=== PATIENT | male | born 1975 | race Caucasian/White ===

== ENCOUNTER 2023-11-02 15:59 | Emergency (ER) | payer BC, SELFPAY ==
--- NOTE | ~2023-11-02 | XR_ITS ---
EXAMINATION: XR chest 2V DATE: 11/02/2023 16:28 INDICATION: Cough and shortness of breath TECHNIQUE: PA and lateral views of the chest are obtained. COMPARISON: None available FINDINGS: The lungs are free of acute opacities. There is a moderate-sized right pneumothorax. The ca rdiomediastinal silhouette is normal. There is mild thoracic spondylosis. IMPRESSION: 1. Moderate size right pneumothorax. [facility] is [facility]. These findings and recommendations were discussed with MARIETTA Biggs at 1618 hours on 11/02/2023. Reviewed, dictated and finalized at location [facility] IMPRESSION: 1. Moderate size right pneumothorax. It is advised that the patient proceed to the emergency department for further management. These findings and recommendat ions were discussed with MARIETTA Biggs at 1618 hours on 11/02/2023.
[2023-11-02 16:07] VITALS: BP 141/79; PULSE 72; RESP 22; TEMP 36.8; O2SAT 99
--- NOTE | 2023-11-02 16:28 | ED.URI ---
HPI - URI/Sore Throat General Chief Complaint: Upper Respiratory Infection Stated Complaint: Chest Congestion/Shortness of Breath/Chest Pain History of Present Illness HPI Narrative: Patient presents with a mole long history of cough productive at times patient states he feels short of breath at times. Patient denies any fever or body aches states he has taken multiple things [id number] for symptoms including NyQuil DayQuil and Mucinex. Related Data Home Medications Medication Instructions Recorded Confirmed sertraline 100 mg tablet 200 mg PO DAILY 11/02/23 11/02/23 Allergies Allergy/AdvReac Type Severity Reaction Status Date / Time No Known Allergies Allergy Verified 11/02/23 16:13 Review of Systems Review of Systems: CONSTITUTIONAL: Denies chills, or sweats. Reports fever and generalized body aches EYES: Denies visual changes, redness, or discharge. ENT: Denies otalgia. Reports nasal congestion runny nose and sore throat CARDIOVASCULAR: Denies chest pain, palpitations, or edema. RESPIRATORY: Denies dyspnea. Reports occasional cough GASTROINTESTINAL: Denies abdominal pain, nausea, vomiting, or diarrhea. GENITOURINARY: Denies dysuria or hematuria. SKIN: Denies rash or itching. MUSCULOSKELETAL: Denies back pain, joint pain, or myalgia. Reports generalized body aches NEUROLOGIC: Denies headache, numbness, or weakness. PSYCHIATRIC: Denies anxiety or depression. PMFSH Comments At time of signature, agree with nursing past medical, surgical, social and family history. There is no relevant family history pertinent to the presenting complaint Exam Narrative: The patient is a well-developed, well-nourished in no acute distress. SKIN: Skin is warm and dry without erythema, swelling or exudate. There is good turgor. No tenting. HEAD: Atraumatic. Normocephalic. No temporal or scalp tenderness. EYES: Moist and bright. Sclera and conjunctivae normal. No discharge. PERRLA. Extraocular motions intact. Gross visual acuity intact. EARS: Pinna is normal shape and contour. Clear external auditory canals. TM pearly hirsch with good cone of light, no erythema or suppuration. Bilateral cerumen noted no gross hearing deficit. NOSE: pink, moist mucosa with good air movement. Clear rhinorrhea without nasal flaring. Septum midline. Mouth: moist mucous membranes. THROAT; mild erythema noted to posterior oropharynx with moderate postnasal drainage. Without exudate or ulceration.. Uvula midline. Normal movement of soft palate. NECK: Supple and nontender with full range of motion without discomfort. No meningeal signs. LUNGS: diminished right base CHEST: The chest wall is without retractions or use of accessory muscles. HEART: Has a regular rate and rhythm without murmur, gallops, click or rub. ABDOMEN: Soft, nontender with positive active bowel sounds. No rebound tenderness. EXTREMITIES: Without cyanosis, clubbing or edema. Equal 2+ distal pulses and 2 second capillary refill noted. NEUROLOGIC: alert, active, . The patient moves all extremities with normal muscle strength. Normal muscle tone is noted. Normal coordination is noted. NO focal neurological findings noted. Course Course Level of Care: Express Care Visit Vital Signs Vital signs: Vital Signs Temperature 36.8 C 11/02/23 16:07 Pulse Rate 72 11/02/23 16:07 Respiratory Rate 22 H 11/02/23 16:07 Blood Pressure 141/79 H 11/02/23 16:07 Pulse Oximetry 99 11/02/23 16:07 Oxygen Delivery Room Air 11/02/23 16:07 Temperature 36.8 C 11/02/23 16:07 Pulse Rate 72 11/02/23 16:07 Respiratory Rate 22 H 11/02/23 16:07 Blood Pressure 141/79 H 11/02/23 16:07 Pulse Oximetry 99 11/02/23 16:07 Oxygen Delivery Room Air 11/02/23 16:07 Transfer Transfered to: [facility] Transportation: ALS Transfer rationale: Higher level care for evaluation treatment of right-sided pneumothorax Accepting physician: guanakito Transfer comm
== END 2023-11-02 17:29 | disposition short-term general hospital (02) ==
PROVIDERS: Emergency Provider Nurse Practitioner Family; PCP Family Medicine
DX: J93.9 Pneumothorax, unspecified (principal)
CPT/HCPCS: 71046; 99203; G0463

== ENCOUNTER 2025-02-16 11:18 | Emergency (ER) | payer BC, SELFPAY ==
--- NOTE | ~2025-02-16 | XR_ITS ---
Clinical Indication: Shortness of breath PA and lateral views of the chest: Comparison: 11/02/2023 Findings: The lungs are clear, without evidence of focal consolidation or pleural effusion. Cardiome diastinal silhouette is within normal limits. Bones and soft tissues are unremarkable. Impression: Normal chest. Reviewed, dictated and finalized at location . Impression: Normal chest.
[2025-02-16 11:21] VITALS: BP 153/98; PULSE 83; RESP 20; TEMP 36.7; O2SAT 100
--- NOTE | 2025-02-16 11:30 | ED_ITS ---
HPI - SOB/Dyspnea General Chief Complaint: Shortness of Breath/Dyspnea Stated Complaint: Shortness of Breath Time Seen by Provider: 02/16/25 11:31 Source: patient Mode of arrival: ambulatory Limitations: no limitations History of Present Illness HPI Narrative: 50 y/o male with hx spontaneous pneumothorax presented for c/o sob. Onset 3 days. worsening since onset. Symptoms unchanged with rest/exertion. Feels like he wakes in the night due to not being able to breathe. Says symptoms feel similar to the previous pneumothorax. denies palpitations but states chest feels weird. Denies cough, wheezing chest pain, n/v/d/f/c. Related Data Home Medications ?Medication ?Instructions ?Recorded ?Confirmed ?Last Taken ?Type sertraline 100 mg tablet 200 mg PO DAILY 11/02/23 11/02/23 Unknown History aripiprazole 10 mg tablet mg 02/16/25 Unknown History atorvastatin 20 mg tablet mg 02/16/25 Unknown History bupropion HCl 150 mg 24 hr tablet, mg PO 02/16/25 Unknown History extended release hydrochlorothiazide 12.5 mg capsule mg 02/16/25 Unknown History levothyroxine 50 mcg tablet mcg 02/16/25 Unknown History losartan 100 mg tablet mg 02/16/25 Unknown History quetiapine 100 mg tablet mg 02/16/25 Unknown History Allergies Allergy/AdvReac Type Severity Reaction Status Date / Time No Known Allergies Allergy Verified 02/16/25 11:27 Review of Systems Review of Systems: per HPI All systems reviewed & are unremarkable except as noted in HPI and below PMFSH Comments At time of signature, I have reviewed and agree with nursing past medical, surgical, social and family history unless otherwise noted. Please see nursing chart for further information. There is no relevant family history pertinent to the presenting complaint Exam Narrative: GENERAL: Well-appearing, in no acute distress. EYES: EOMI. No redness or drainage. Conjunctivae normal. ENT: Mucous membranes pink and moist. No rhinorrhea. NECK: Normal AROM. Supple. CHEST: No respiratory distress; speaks full sentences. lungs clear to all [place]. HEART: Regular rate and rhythm. No murmur appreciated. SKIN: Warm, dry, no rash. Capillary refill normal. Normal skin turgor. NEURO: Alert and oriented x3. Gait steady. PSYCH: Normal affect. Course Course Emergency Course: Patient is aware of diagnosis, understands and agrees to treatment plan. Anticipatory guidance given. Patient agrees to follow-up as directed and is aware of reasons to seek care at the emergency department. Portions of this record may have been created with voice recognition software Level of Care: Express Care Visit Vital Signs Vital signs: Vital Signs Temperature 98.1 F 02/16/25 11:21 Pulse Rate 83 02/16/25 11:21 Respiratory Rate 20 02/16/25 11:21 Blood Pressure 153/98 H 02/16/25 11:21 Pulse Oximetry 100 02/16/25 11:21 Oxygen Delivery Room Air 02/16/25 11:21 Temperature 98.1 F 02/16/25 11:21 Pulse Rate 83 02/16/25 11:21 Respiratory Rate 20 02/16/25 11:21 Blood Pressure 153/98 H 02/16/25 11:21 Pulse Oximetry 100 02/16/25 11:21 Oxygen Delivery Room Air 02/16/25 11:21 MDM - SOB/Dyspnea MDM Narrative Medical decision making narrative: Discussed physical exam findings, Reviewed CXR and EKG unremarkable however given his history of spontaneous pneumo he is advised ER transfer. Shared decision making. Pt is agreeable. Differential Diagnosis Differential diagnosis: Likely other (Angioedema, perforation, asthma, pneumonia, PE, tension pneumothorax, cardiac tamponade [place], pericarditis, pleural effusion, CHF, bronchitis, cardiac arrhythmia) Imaging Data Radiologist's impression: Patient: Jun Alexis : 1975 MR#: [id number] Age: 50 Acct:[id number] Loc: [facility] ADM Date: 02/16/25Attending Dr: Ordering Physician: Briana Lester APRN Date of Service: 02/16/25 Procedure(s): XR chest 2V Accession Number(s): [id number] cc: Julian, Francisco Javier Ji MD; Briana Lester APRN~ Clinical Indication: Shortness of breath PA and lateral views of the chest: Comparison: 11/02/2023 Findings: The lungs are clear, without evidence of focal consolidation or pleural effusion. Cardiomediastinal silhouette is within normal limits. Bones and soft tissues are unremarkable. Impression: Normal chest. ECG Data EKG #1: Attestation: I personally reviewed and interpreted this ECG as follows: (NSR sinus arrhythmia rate 72, OR 198 QRS 107 QT/QTc 403/427) ECG completion date: 02/16/25 ECG completion time: 11:47 Prior ECG tracings: not available for review EKG Interpretation: normal rate and sinus rhythm Discharge Plan Discharge Clinical Impression: Shortness of breath Patient Disposition: Acute Care Hospital Condition: Stable Patient Language: Citizen Of [place] Prescriptions: No Action sertraline 100 mg tablet 200 mg PO DAILY atorvastatin 20 mg tablet quetiapine 100 mg tablet levothyroxine 50 mcg tablet hydrochlorothiazide 12.5 mg capsule losartan 100 mg tablet aripiprazole 10 mg tablet bupropion HCl 150 mg tablet extended release 24 hr PO Follow-up/Referrals: Julian,Francisco Javier Valentino MD [Primary Care Provider] - Time of Disposition: 12:07
--- NOTE | 2025-02-16 11:39 | ECG_ITS ---
Test Date: 2025-02-16 11:47:06 Measurements Intervals [place] Rate: 72 P: 50 UT: 198 QRS: 76 QRSD: 107 T: 47 QT: 403 QTc: 442 Interpretive Statements SINUS RHYTHM WITH SINUS ARRHYTHMIA INCOMPLETE RIGHT BUNDLE BRANCH BLOCK MINIMAL Q WAVES- INFERIOR LEADS BASELINE ARTIFACT- II, III BORDERLINE ECG No previous ECG available for comparison Electronically Signed On 02-16-2025 12:05:26 CDT by Ronaldo Glass D.O.
--- OUTSIDE RECORDS SUMMARY | 2025-02-16 13:16 | XMS_ITS | Clinical Summary ---
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 [employer] us Francisco Javier Jordan MD LAB BLOOD ORDERABLES Final Result KRISTINA PRASAD [id number] [address] Department [place] [address] * Urinalysis reflex to microscopic and culture Urine (12/11/2024 1:13 PM [employer]) Color, ur Yellow Yellow Clarity, ur Clear Clear [facility] ([place]) Specific gravity, ur 1.019 1.003 - 1.030 [facility] ([place]) pH, urine 5.5 [facility] ([place]) Comment: Interpretive Data U rine pH is affected by diet, medications, systemic acid-base disturbances, and renal tubular function. pH may affect urinary stone formation. For example, urine pH below 6.0 may help reduce the tendency for calcium phosphate stones and pH greater than 6.0 may reduce the tendency for uric acid stone formation. Source: [facility] Current Interpretive Data was last revised on 2017 Protein, ur ql Trace Negative [facility] ([place]) Glucose, ur ql Negative Negative [facility] ([place]) Ketones, ur Negative Negative [facility] ([place]) Bilirubin, ur Negative Negative [facility] ([place]) Blood, ur Negative Negative [facility] ([place]) Urobilinogen, ur <2.0 <2.0 mg/dL [facility] ([place]) Nitrite, ur Negative Negative [facility] ([place]) Leukocyte esterase, ur Negative Negative [facility] ([place]) UA reflex comment Reflex conditions for microscopic UA and culture not met. [facility] ([place]) Urine 12/11/2024 1:13 PM [employer] 12/11/2024 1:17 PM [employer] us Anton Levy MD LAB MICROBIOLOGY - GENERAL OR DERABLES Final Result [facility] ([place]) [facility] Department [place] [address] * Drugs of Abuse Screen, Urine without Confirmation (12/11/2024 1:13 PM [employer]) Amphetamine, ur Not Detected CutOff 500ng/mL Comment: Interpretive Data - Amphetamines: Samples containing greater than 500 ng/mL d-methamphetamine or other cross-reacting amphetamine compounds are reported as positive. Amphetamine immunoassays are subject to significant false positive rates due to cross-reactivity of non-amphetamine drugs. Confirmatory testing required for definitive results. Current Interpretive Data was last reviewed 2023. Barbiturates, ur Not Detected CutOff 200ng/mL [facility] ([place]) Comment: Interpretive Data - Barbiturates: Samples containing greater than 200 ng/mL secobarbital or other cross-reacting barbiturate compounds are reported as positive. False positive and false negative results are possible. Confirmatory testing required for definitive results. Current Interpretive Data was last reviewed 2023. Benzodiazepines, ur Not Detected CutOff 100ng/mL [facility] ([place]) Comment: Interpretive Data - Benzodiazepines: Samples containing greater than 100 ng/mL nordiazepam or other cross-reacting compounds are reported as positive. False positive and false negative results are possible. Confirmatory testing required for definitive results. Current Interpretive Data was last reviewed 2023. Cannabinoids, ur Not Detected CutOff 50 ng/mL [facility] ([place]) Comment: Interpretive Data - Cannabinoids: Samples containing greater than 50 ng/mL delta-9 THC -COOH or other cross- reacting compounds are reported as positive. False positive and false negative results are possible. Confirmatory testing required for definitive results. Current Interpretive Data was last reviewed 2023. Cocaine, ur Not Detected CutOff 150ng/mL [facility] ([place]) Comment: Interpretive Data - Cocaine: Samples containing greater than 150 ng/mL benzoylecgonine or other cross- reacting compounds are reported as positive. False positive and false negative results are possible. Confirmatory testing required for definitive results. Current Interpretive Data was last reviewed 2023. Fentanyl, Ur Not Detected CutOff 5 ng/mL [facility] ([place]) Comment: Interpretive Data - Fentanyl: Samples containing greater than 5 ng/mL norfentanyl, fentanyl, or other cross-reacting fentanyl compounds are reported as positive. False positive and false negative results are possible. Confirmatory testing required for definitive results. Current Interpretive Data was last reviewed 2023. Methadone, ur Not Detected CutOff 300ng/mL [facility] ([place]) Comment: Interpretive Data - Methadone: Samples containing greater than 300 ng/mL d,l-methadone or other cross-reacting compounds are reported as positive. False positive and false negative results are possible. Confirmatory testing required for definitive results. Current Interpretive Data was last reviewed 2023. Opiates, ur Not Detected CutOff 300ng/mL [facility] ([place]) Comment: Interpretive Data - Opiates: Samples containing greater than 300 ng/mL morphine or other cross-reacting compounds are reported as positive. False positive and false negative results are possible. Confirmatory testing required for definitive results. Current Interpretive Data was last reviewed 2023. Oxycodone, ur Not Detected CutOff 100ng/mL KRISTINA GON[facility]ALE[facility] ([place]) Comment: Interpretive Data - Oxycodone: Samples containing greater than 100 ng/mL oxycodone or other cross-reacting compounds are reported as positive. False positive and false negative results are possible. Confirmatory testing required for definitive results. Current Interpretive Data was last reviewed 2023. Phencyclidine, ur Not Detected CutOff 25 ng/mL KRISTINA GON[facility]ALE[facility] ([place]) Comment: Interpretive Data - Phencyclidine: Samples containing greater than 25 ng/mL phencyclidine or other cross-reacting compounds are reported as positive. False positive and false negative results are possible. Confirmatory testing required for definitive results. Current Interpretive Data was last reviewed 2023. Urine Creatinine 206 mg/dL EYAL GON[facility] ([place]) Comment: Interpretive Data Urine Creatinine: < 10 mg/dL is extremely dilute = or > 10 but < 20 mg/dL is dilute = or > 20 mg/dL is normal Current Interpretive Data was last revised on 2018. Urine 12/11/2024 1:13 PM [employer] 12/11/2024 1:17 PM [employer] Narrative KRISTINA GON[facility]ALE[facility] ([place]) - 12/11/2024 1:53 PM [employer] Drug of Abuse screening is performed by immunoassay for medical purposes only. This is not to be used for Pain Management purposes. us Anton Levy MD LAB URINE ORDERABLES Final Re sult KRISTINA GONZALEZ ([place]) 1 [facility] Department of Laboratories [place], [place] [id number] * (ABNORMAL) Ethanol (12/11/2024 12:13 PM [employer]) Ethanol 98(H) <=10 mg/dL Comment: Interpretive Data Legal limit of intoxication > or = 80 mg/dL Levels > or = 400 mg/dL are potentially TOXIC. Current interpretive data was last revised on 2018. Blood 12/11/2024 12:1 3 PM [employer] 12/11/2024 12:15 PM [employer] us Zhang Edwards MD LAB BLOOD ORDERABLES Final R esult KRISTINA GONZALEZ ([place]) 1 [facility] Department [place] [address] * COVID-19 Coronavirus RNA Nasopharyngeal (12/11/2024 4:22 AM [employer]) COVID-19 RNA Negative Negative Nasopharyngeal 12/11/2024 4: 22 AM [employer] 12/11/2024 4:26 AM [employer] Narrative KRISTINA GONZALEZ ([place]) - 12/11/2024 5:03 AM [employer] Is the patient experiencing any symptoms consistent with COVID (eg. Fever, cough, shortness of breath)?->No What is the reason for testing?->Screening prior to Behavioral health admission Interpretive data: Testing performed by [facility]. This test is performed using the [employer] Xpert Xpress CoV-2 plus assay. This is a real-time RT-PCR test intended for the qualitative detection of nucleic acid from the SARS-CoV-2. This assay has been cleared by the [place] Food and Drug administration. The performance characteristics have been verified by [facility]. Results must be considered in the clinical context, and a negative result does not rule out infection. Interpretive data last revised 2024. Interpretive data: Testing performed by [facility]. This test is performed using the [employer] Xpert Xpress CoV-2 plus assay. This is a real-time RT-PCR test intended for the qualitative detection of nucleic acid from the SARS-CoV-2. This assay has been cleared by the [place] Food and Drug administration. The performance characteristics have been verified by [facility]. Results must be considered in the clinical context, and a negative result does not rule out infection. Interpretive data last revised 2024. us Anton Levy MD LAB MICROBIOLOGY - GENERAL OR DERABLES Final Result KRISTINA GONZALEZ ([place]) 1 [facility] Department [place] [address] * eGFR (12/11/2024 4:22 AM [employer]) eGFR >90 >=60 mL/min/1. 73 m2 Comment: Interpretive Data Reference Interval Normal >/= 90 mL/min/1.73m2 Mildly decreased* 60 - 89 mL/min/1.73m2 Mildly to moderately decreased 45 - 59 mL/min/1.73m2 Moderately to severely decreased 30 - 44 mL/min/1.73m2 Severely decreased 15 - 29 mL/min/1.73m2 Kidney Failure < 15 mL/min/1.73m2 *Relative to young adult level Estimated glomerular filtration rate is determined by the 2020 CKD-EPI equation recommended by the National Kidney Foundation (A Unifying Approach to GFR Estimation: Recommendations of the NKF-ASK Task Force on Reassessing the Inclusion of Race in Diagnosing Kidney Disease, JASN 2020). The CKD-EPI equation should not be used for patients with unstable renal function and has not been validated in children and those over 70. Current interpretive data was last reviewed 2021. Blood 12/11/2024 4:22 AM [employer] 12/11/2024 4:26 AM [employer] us Anton Levy MD LAB BLOOD ORDERABLES Final Re sult KRISTINA GONZALEZ ([place]) 1 [facility] Department [place] [address] * Differential, auto (12/11/2024 4:22 AM [employer]) Neutrophil abs 4.9 1.5 - 6.5 K/cumm Imm gran abs 0.1 0.0 - 0.1 K/cumm [facility] ([place]) Lymphocyte abs 2.3 0.8 - 3.3 K/cumm [facility] ([place]) Monocyte abs 0.4 0.2 - 0.8 K/cumm [facility] ([place]) Eosinophil abs 0.1 0.0 - 0.5 K/cumm [facility] ([place]) Basophil abs 0.0 0.0 - 0.1 K/cumm [facility] ([place]) Neutrophil pct 63.5 % [facility] ([place]) Comment: Interpretive Data Percent cell count reference ranges are not reported, since discordance with absolute values may lead to misinterpretation of CBC data. Current Interpretive Data was last revised on 2018. Imm gran pct 0.6 % [facility] ([place]) Comment: Interpretive Data Percent cell count reference ranges are not reported, since discordance with absolute values may lead to misinterpretation of CBC data. Current Interpretive Data was last revised on 2018. Lymphocyte pct 29.2 % [facility] ([place]) Comment: Interpretive Data Percent cell count reference ranges are not reported, since discordance with absolute values may lead to misinterpretation of CBC data. Current Interpretive Data was last revised on 2018. Monocyte pct 5.5 % [facility] ([place]) Comment: Interpretive Data Percent cell count reference ranges are not reported, since discordance with absolute values may lead to misinterpretation of CBC data. Current Interpretive Data was last revised on 2018. Eosinophil pct 0.8 % [facility] ([place]) Comment: Interpretive Data Percent cell count reference ranges are not reported, since discordance with absolute values may lead to misinterpretation of CBC data. Current Interpretive Data was last revised on 2018. Basophil pct 0.4 % [facility] ([place]) Comment: Interpretive Data Percent cell count reference ranges are not reported, since discordance with absolute values may lead to misinterpretation of CBC data. Current Interpretive Data was last revised on 2018. Blood 12/11/2024 4:22 AM [employer] 12/11/2024 4:26 AM [employer] us Anton Levy MD LAB BLOOD ORDERABLES Final Re sult KRISTINA GONZALEZ ([place]) 1 [facility] Department [place] [address] * (ABNORMAL) Thyroid Function [place] (12/11/2024 4:22 AM [employer]) TSH 6.07(H) 0.30 - 4.20 mcIUnit/mL Blood 12/11/2024 4:22 AM [employer] 12/11/2024 4:26 AM [employer] us Anton Levy MD LAB BLOOD ORDERABLES Final Re sult Performing Organization Address City/[facility]/ZIP Co de Phone Number [facility] ([place]) [facility] Department [place] [address] * (ABNORMAL) CBC with auto differential (12/11/2024 4:22 AM PRESS OPER[employer]) Pathologist [facility] WBC 7.8 3.8 - 9.9 K/cumm Hgb 14.2 13.0 - 17.5 g/dL [facility] ([place]) Hct 39.5 38.9 - 50.3 % [facility] ([place]) Plt 169 150 - 400 K/cumm [facility] ([place]) MPV 9.1 9.1 - 12.3 fL [facility] ([place]) RBC 4.35 4.30 - 5.80 M/cumm [facility] ([place]) MCV 90.8 81.3 - 96.4 fL [facility] ([place]) MCH 32.6 27.1 - 33.3 pg [facility] ([place]) MCHC 35.9(H) 32.3 - 35.7 g/dL [facility] ([place]) RDW CV 15.0(H) 11.1 - 14.9 % [facility] ([place]) RDW SD 49.6(H) 35.7 - 48.1 fL [facility] ([place]) NRBC abs 0.00 0.00 - 0.01 K/cumm [facility] ([place]) Blood Venous blood specimen / Unknown 12/11/2024 4:22 AM [employer] 12/11/2024 4:26 AM [employer] us Anton Levy MD LAB BLOOD ORDERABLES Final Re sult Performing Organization Address City/[facility]/ZIP Co de Phone Number [facility] ([place]) 1 [facility] [place] [address] * T4, free (12/11/2024 4:22 AM [employer]) Free T4 1.21 0.90 - 1.70 ng/dL Blood 12/11/2024 4:22 AM [employer] 12/11/2024 4:26 AM [employer] Narrative KRISTINA GONZALEZ ([place]) - 12/11/2024 5:33 AM [employer] This test was reflexed from a TSH result. Anton Levy MD LAB BLOOD ORDERABLES Final Re sult Performing Organization Address [facility] Co de Phone Number KRISTINA GONZALEZ ([place]) 1 [facility] [place] [address] * Magnesium (12/11/2024 4:22 AM PRESS O[employer]) Pathologist [facility] Magnesium 1.9 1.4 - 2.5 mg/dL Blood 12/11/2024 4:22 AM [employer] 12/11/2024 5:26 AM [employer] Anton Levy MD LAB BLOOD ORDERABLES Final Re sult Performing Organization Address [facility] Co de Phone Number KRISTINA GONZALEZ ([place]) 1 [facility] [place] [address] * (ABNORMAL) Ethanol (12/11/2024 4:22 AM PRESS [employer]) Ethanol 249(H) <=10 mg/dL Comment: Interpretive Data Legal limit of intoxication > or = 80 mg/dL Levels > or = 400 mg/dL are potentially TOXIC. Current interpretive data was last revised on 2018. Blood 12/11/2024 4:22 AM [employer] 12/11/2024 4:26 AM [employer] Anton Levy MD LAB BLOOD ORDERABLES Final Re sult Performing Organization Address City/[facility]/ZIP Co de Phone Number KRISTINA [place]) 1 [facility] Department [place] [address] * Acetaminophen level (12/11/2024 4:22 AM PRESS [employer]) Acetaminophen <5 <=5 mcg/mL Comment: Markedly elevated levels of Acetaminophen and it's metabolites may lead to false low test results for cholesterol, HDL, triglycerides and uric acid with the manufacturers test methods used by our lab. Interpretive Data Significant hepatic injury may occur and treatment with n-acetyl cysteine is generally recommended if the acetaminophen level exceeds: 150 mcg/mL at 4 hours after ingestion 75 mcg/mL at 8 hours after ingestion 38 mcg/mL at 12 hours after ingestion 19 mcg/mL at 16 hours after ingestion Consult toxicology or poison control ([phone]) for unknown ingestion time. Current interpretive data was last revised 2023. Blood 12/11/2024 4:22 AM [employer] 12/11/2024 4:26 AM [employer] Anton Levy MD LAB BLOOD ORDERABLES Final Re sult Performing Organization Address [facility] Co de Phone Number KRISTINA GONZALEZ ([place]) 1 [place] [address] * Salicylate level (12/11/2024 4:22 AM PR[employer]) Salicylate <5.0 <=5.0 mg/dL Comment: Interpretive Data Toxic: 30 mg/dL or greater. Current interpretive data was last revised 2023. Blood 12/11/2024 4:22 AM [employer] 12/11/2024 4:26 AM PR[employer] Anton Levy MD LAB BLOOD ORDERABLES Final Re sult KRISTINA GONZALEZ ([place]) 1 [facility] [place] [address] * (ABNORMAL) Comprehensive metabolic panel (12/11/2024 4:22 AM PRESS OPER[employer]) Sodium 139 135 - 145 mmol/L Potassium, pl 3.8 3.3 - 4.9 mmol/L [facility] ([place]) Chloride 104 97 - 110 mmol/L [facility] ([place]) CO2 21(L) 22 - 32 mmol/L [facility] ([place]) Anion gap 14 2 - 15 mmol/L [facility] ([place]) BUN 13 6 - 25 mg/dL [facility] ([place]) Creatinine 0.96 0.80 - 1.30 mg/dL [facility] ([place]) Glucose 150 70 - 199 mg/dL [facility] ([place]) Comment: Interpretive Data Fasting glucose >/= 126 mg/dl is diagnostic for diabetes. Fasting is defined as no caloric intake for at least 8 hours. Fasting glucose between 100 mg/dl to 125 mg/dl is diagnostic of prediabetes. In a patient with classic symptoms of hyperglycemia or hyperglycemic crisis, a random glucose >/= 200 mg/dl is diagnostic for diabetes. In the absence of unequivocal hyperglycemia, results should be confirmed by repeat testing. The classification and Diagnosis of Diabetes Diabetes Care 2021; 46: S19-S40. Current interpretive data was last revised 2022. Calcium 8.9 8.5 - 10.3 mg/dL [facility] ([place]) Bilirubin, total <0.2 0.1 - 1.2 mg/dL [facility] ([place]) Protein, pl 7.2 6.5 - 8.5 g/dL [facility] ([place]) Albumin 4.7 3.5 - 5.0 g/dL [facility] ([place]) Alk phos 66 40 - 130 Units/L [facility] ([place]) ALT 14 7 - 55 Units/L [facility] ([place]) AST 15 10 - 50 Units/L [facility] ([place]) Blood 12/11/2024 4:22 AM [employer] 12/11/2024 4:26 AM [employer] us Anton Levy MD LAB BLOOD ORDERABLES Final Re sult [facility] ([place]) [address] [facility] Department [place] [address] * POCT glucose (12/11/2024 4:20 AM PRESS [employer]) Glucose, POC 141 70 - 199 mg/dL Blood 12/11/2024 4:20 AM [employer] 12/11/2024 4:20 AM [employer] Anton Levy MD LAB POCT ORDERABLES - DEVICE Final Result Performing Organization Address City/State/[facility] Co de Phone Number KRISTINA [facility] ([place]) [address] [facility] Department [place] [address] * PSA screen (11/18/2023 1:48 PM PRESS O[employer]) Pathologist [facility] PSA-Total 1.12 <=3.90 ng/mL KRISTINA PRASAD Comment: Interpretive Data AGE SEX REFERENCE INTERVAL 0 minutes-150 years Female None 0 minutes-49 years Male None 50-59 years Male 0-3.90 60-69 years Male 0-5.40 70-79 years Male 0-6.20 80-150 years Male 0-6.20 The Jose PSA Total assay procedure was used. Results from different manufacturers or methods may not be comparable. Serial testing should be performed using the same method. Current interpretive data last revised 22. Blood 11/18/2023 1:48 PM [employer] 11/18/2023 7:30 PM [employer] Francisco Javier Jordan MD LAB BLOOD ORDERABLES Final Result Performing Organization Address City/[facility] Co de Phone Number KRISTINA [address] [address] Department [place] [address] * Serum Hepatitis panel (07/28/2014 12:30 PM CDT) HBV surface ag NONREAC NONREAC HISTO RICAL RESULTS HAV ab, IgM NONREAC NONREAC HISTORIC AL RESULTS Comment: HEP A IGM Early acute infection (within the prior 2 weeks) is not ruled out by this test. HBV core ab, IgM NONREAC NONREAC HISTORICAL RESULTS HCV ab NONREAC NONREAC HISTORICAL RESULTS Comment: HEP C EARLY ACUTE INFECTION (OCCURING DURING THE PRIOR 8-9 WEEKS) IS NOT RULED OUT BY THIS TEST. Serum 07/28/2014 12:3 0 PM CDT Gary Braun MD LAB BLOOD ORDERABLES Final Result HISTORICAL RESULTS from Last 3 Months or Most Recently Relevant to Health Maintenance Insurance [employer] [place] [facility] Advance Directives For more information, please contact: [phone] * Full Code (Latest Code Status on File) Date Activated Date Inactivated Comments 11/02/2023 8:35 PM 11/09/2023 9:13 PM Care Teams Track And [employer] Coach Relationship Specialty Start Date End Date Francisco Javier Jordan MD PCP - General 01/24/17 Francisco Javier Jordan MD [facility] [place] [address] PCP - [place] [employer] Attributed PCP 08/27/19 [place] [address] [facility] [address] [place] [address] Consulting Physician Psychiatry 12/02/18
--- OUTSIDE RECORDS SUMMARY | 2025-02-16 13:16 | XMS_ITS | Referral Summary ---
Author Organization [facility] Address [address] [place] [address] Care Team Providers Care Conditioning Coach Name Role Phone Francisco Javier Jordan MD Primary Care Provider [phone] Maxi Arizmendi MD Unavailable Francisco Javier Jordan MD Unavailable [phone] Encounters Date Type Department Care Team Description 01/24/2025 1:15 PM CDT Office Visit [facility] Primary Care at [address] [phone] Francisco Javier Jordan MD Recurrent major depressive disorder, in partial remission (Primary Dx); Acquired hypothyroidism; Class 2 severe obesity due to excess calories with serious comorbidity and body mass index (BMI) of 37.0 to 37.9 in adult (HCC); Prediabetes 01/02/2025 Results Follow-Up [facility] Primary Care at [address] [phone] Francisco Javier Jordan MD 12/23/2024 10:51 AM HEAD BONE GRINDER - 12/23/2024 11:59 PM HEAD BONE GRINDER Hospital Encounter [address] [address] Benign hypertension; Fatigue, unspecified type; Severe major depression (HCC) Discharge Disposition: Discharge to home or self care 12/23/2024 11:00 AM HEAD BONE GRINDER Lab [facility] Outpatient Lab at [address] [phone] Benign hypertension (Primary Dx) 12/23/2024 10:15 AM HEAD BONE GRINDER Office Visit [facility] Primary Care at [address] [phone] Francisco Javier Jordan MD Severe major depression (HCC) (Primary Dx); Benign hypertension; Class 2 severe obesity due to excess calories with serious comorbidity and body mass index (BMI) of 37.0 to 37.9 in adult (HCC); Colon cancer screening; Fatigue, unspecified type 12/11/2024 4:15 AM HEAD BONE GRINDER - 12/11/2024 7:50 PM HEAD BONE GRINDER Emergency [facility] Emergency Department [address] [id number] Anton Levy MD Hanson, Thomas S., MD Suicidal ideation (Primary Dx); Alcohol abuse Discharge Disposition: Discharge to psych hospital or psych unit from Last 3 Months Allergies No known active allergies Medications atorvastatin (LIPITOR) 20 mg tabletIndication s:Benign hypertension Take 1 tablet (20 mg total) by mouth daily 90 tablet 3 12/23/19 25 026 Active levothyroxine (SYNTHROID) 50 mcg tablet Take 1 tablet (50 mcg total) by mouth scratch finisher before breakfast 90 tablet 1 01/03/20 25 [...] 11/18/2023 Assessment & Plan (11/18/2023 1:46 PM HEAD BONE GRINDER): I have reviewed the hospital record, medications, [...] NOS Assessment & Plan (12/23/2024 10:39 AM HEAD BONE GRINDER): BMI Follow-up includes: nutrition counseling, exercise counseling, and education provided. Assessment & Plan (02/05/2021 11:57 AM CDT): BMI Follow-up includes: nutrition counseling, exercise counseling and education provided. Assessment & Plan (08/07/2020 12:35 PM CDT): Healthy, low carbohydrate lifestyle and exercise Resolved Problems Problem Noted Date Diagnosed Date Resolved Date Alcohol use disorder, severe, dependence 01/28/2023 06/09/2024 Gout 07/24/2012 08/07/2020 Overview (01/31/2017): GOUT NOS Immunizations Immunization Administration Dates Next Due Hep A, Adult 08/17/2019 Hep A, Unspecified 08/17/2019 Influenza, Quadrivalent, Spl it, Intramuscular 05/02/2016 Influenza, Unspecified 12/23/2024(Deferr ed: Patient Refused),12/22/2023(Deferred: Patient Refused),11/18/2023(Deferred: Patient Refused),10/28/2023(Deferred: Patient Refused),10/28/2022(Deferred: Patient Refused),10/28/2022(Deferred: Patient Refused),10/27/2022(Deferred: Patient Refused),07/28/2022(Deferred: Patient Refused),10/28/2021(Deferred: Patient Refused),08/07/2020(Deferred: Patient Refused),08/07/2019(Deferred: Patient Refused),12/02/2018(Deferred: Patient Refused),07/27/2018(Deferred: Patient Refused),07/27/2018(Deferred: Patient Refused),07/27/2018(Deferred: Patient Refused) Tdap 05/04/2015 Social History Tobacco Use Types Packs/Day Years Used Date Smoking Tobacco: Never Smokeless Tobacco: Never Tobacco Cessation:Counseling Given: Not Answered Alcohol Use Standard Drinks/Week Comments Yes 0 (1 standard drink = 0.6 oz pure alcohol) pt drinks bottle of whiskey daily [facility] Heartbeat Answer Date Recorded In the past 12 months has e [employer], oil, or water [employer] threatened to shut off services in your [...] often do you attend chur ch or temple services? Never 11/03/2023 Do you belong to any clubs o r organizations such as amish groups, unions, fraternal or athletic groups, or [...] place to sleep or slept in a care home (including now)? No 11/03/2023 Personal Safety Answer Date Recorded Have you ever been in or are you currently in a harmful physical or emotional relationship or is someone making you feel afraid or unsafe? 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 Not on file Not on file Not on file referree Not on file Not on file Not on file Last Filed Vital Signs Vital Sign Reading [...] 01/24/2025 1:20 PM CDT Plan of Treatment Not on file Procedures Procedure Name Priority Date/Time Associated Diagnosis Comments EGFR Routine 12/23/2024 10:51 AM HEAD BONE GRINDER Benign hypertension T4, FREE Routine 12/23/2024 10:51 AM HEAD BONE GRINDER Benign hypertension Fatigue, unspecified type DIFFERENTIAL AUTO Routine 12/23/2024 10: 51 AM HEAD BONE GRINDER Benign hypertension TOTAL TESTOSTERONE Routine 12/23/2024 10 :51 AM HEAD BONE GRINDER Severe major depression (HCC) Fatigue, unspecified type THYROID FUNCTION CASCADE Routine 12/23/2024 10:51 AM HEAD BONE GRINDER Benign hypertension Fatigue, unspecified type LIPID PANEL Routine 12/23/2024 10:51 AM HEAD BONE GRINDER Benign hypertension COMPREHENSIVE METABOLIC PANEL Routine 12/23/2024 10:51 AM HEAD BONE GRINDER Benign hypertension CBC WITH AUTO DIFFERENTIAL Routine 12/23/2024 10:51 AM HEAD BONE GRINDER Benign hypertension DRUGS OF ABUSE SCREEN, URINE WITHOUT CONFIRMATION STAT 12/11/2024 1:13 PM HEAD BONE GRINDER URINALYSIS AND REFLEX TO MICROSCOPIC AND CULTURE STAT 12/11/2024 1:13 PM HEAD BONE GRINDER ETHANOL Timed 12/11/2024 12:13 PM HEAD BONE GRINDER EGFR STAT 12/11/2024 4:22 AM HEAD BONE GRINDER T4, FREE STAT 12/11/2024 4:22 AM HEAD BONE GRINDER DIFFERENTIAL AUTO STAT 12/11/2024 4:2 2 AM HEAD BONE GRINDER MAGNESIUM Routine 12/11/2024 4:22 AM HEAD BONE GRINDER ACETAMINOPHEN LEVEL STAT 12/11/2024 4 :22 AM HEAD BONE GRINDER SALICYLATE LEVEL STAT 12/11/2024 4:22 AM HEAD BONE GRINDER ETHANOL STAT 12/11/2024 4:22 AM HEAD BONE GRINDER THYROID FUNCTION CASCADE STAT 12/11/2024 4:22 AM HEAD BONE GRINDER COMPREHENSIVE METABOLIC PANEL STAT 12/11/2024 4:22 AM HEAD BONE GRINDER CBC WITH AUTO DIFFERENTIAL STAT 12/11/2024 4:22 AM HEAD BONE GRINDER COVID-19 CORONAVIRUS RNA STAT 12/11/2024 4:22 AM HEAD BONE GRINDER POCT GLUCOSE DEVICE Routine 12/11/2024 4 :20 AM HEAD BONE GRINDER PSA SCREEN Routine 11/18/2023 1:48 PM HEAD BONE GRINDER Screening for prostate cancer SERUM HEPATITIS PANEL Routine 07/28/2014 12:30 PM CDT from Last 3 Months or Most Recently Relevant to Health Maintenance Results * eGFR (12/23/2024 10:51 AM HEAD BONE GRINDER) eGFR >90 >=60 mL/min/1. 73 m2 Comment: [...] reviewed 2021. Blood 12/23/2024 10:5 1 AM HEAD BONE GRINDER 12/23/2024 4:17 PM HEAD BONE GRINDER us Francisco Javier Jordan MD LAB BLOOD ORDERABLES Final Result KRISTINA PRASAD [address] [address] Department of Laboratories [place], [place] [phone] * Differential, auto (12/23/2024 10:51 AM HEAD BONE GRINDER) Neutrophil abs 3.1 1.5 - 6.5 K/cumm Imm gran abs 0.0 0.0 - 0.1 K/cumm [facility] Lymphocyte abs 1.9 0.8 - 3.3 K/cumm [facility] Monocyte abs 0.5 0.2 - 0.8 K/cumm [facility] Eosinophil abs 0.2 0.0 - 0.5 K/cumm [facility] Basophil abs 0.0 0.0 - 0.1 K/cumm [facility] Neutrophil pct 54.6 % [facility] Comment: Interpretive Data Percent cell count reference ranges are not reported, since discordance with absolute values may lead to misinterpretation of CBC data. Current Interpretive Data was last revised on 2018. Imm gran pct 0.3 % [facility] Comment: Interpretive Data Percent cell count reference ranges are not reported, since discordance with absolute values may lead to misinterpretation of CBC data. Current Interpretive Data was last revised on 2018. Lymphocyte pct 33.6 % [facility] Comment: Interpretive Data Percent cell count reference ranges are not reported, since discordance with absolute values may lead to misinterpretation of CBC data. Current Interpretive Data was last revised on 2018. Monocyte pct 8.2 % [facility] Comment: Interpretive Data Percent cell count reference ranges are not reported, since discordance with absolute values may lead to misinterpretation of CBC data. Current Interpretive Data was last revised on 2018. Eosinophil pct 2.6 % [facility] Comment: Interpretive Data Percent cell count reference ranges are not reported, since discordance with absolute values may lead to misinterpretation of CBC data. Current Interpretive Data was last revised on 2018. Basophil pct 0.7 % [facility] Comment: Interpretive Data Percent cell count reference ranges are not reported, since discordance with absolute values may lead to misinterpretation of CBC data. Current Interpretive Data was last revised on 2018. Blood 12/23/2024 10:5 1 AM HEAD BONE GRINDER 12/23/2024 4:13 PM HEAD BONE GRINDER us Francisco Javier Jordan MD LAB BLOOD ORDERABLES Final Result KRISTINA [address] [address] Department [place] [address] * (ABNORMAL) Thyroid Function Kern (12/23/2024 10:51 AM HEAD BONE GRINDER) TSH 6.10(H) 0.30 - 4.20 mcIUnit/mL Blood 12/23/2024 10:5 1 AM HEAD BONE GRINDER 12/23/2024 4:13 PM HEAD BONE GRINDER Francisco Javier Jordan MD LAB BLOOD ORDERABLES Final Result Performing Organization Address [facility] Co de Phone Number KRISTINA PRASAD [address] [place] [address] * (ABNORMAL) CBC with auto differential (12/23/2024 10:51 AM HEAD BONE GRINDER) WBC 5.7 3.8 - 9.9 K/cumm Hgb 13.7 13.0 - 17.5 g/dL [facility] Hct 42.1 38.9 - 50.3 % [facility] Plt 142(L) 150 - 400 K/cumm [facility] MPV 9.6 9.1 - 12.3 fL [facility] RBC 4.36 4.30 - 5.80 M/cumm [facility] MCV 96.6(H) 81.3 - 96.4 fL [facility] MCH 31.4 27.1 - 33.3 pg [facility] MCHC 32.5 32.3 - 35.7 g/dL [facility] RDW CV 14.6 11.1 - 14.9 % [facility] RDW SD 52.4(H) 35.7 - 48.1 fL [facility] NRBC abs 0.00 0.00 - 0.01 K/cumm [facility] Blood 12/23/2024 10:5 1 AM HEAD BONE GRINDER 12/23/2024 4:13 PM HEAD BONE GRINDER Francisco Javier Jordan MD LAB BLOOD ORDERABLES Final Result Performing Organization Address City/[facility] Co de Phone Number KRISTINA PRASAD [address] [address] Department of [employer] [place], [place] [phone] * (ABNORMAL) T4, free (12/23/2024 10:51 AM HEAD BONE GRINDER) Free T4 0.87(L) 0.90 - 1.70 ng/dL Blood 12/23/2024 10:5 1 AM HEAD BONE GRINDER 12/23/2024 4:17 PM HEAD BONE GRINDER Francisco Javier Jordan MD LAB BLOOD ORDERABLES Final Result Performing Organization Address City/[facility] Co de Phone Number KRISTINA PRASAD [address] [facility] [place] [employer] [place] [address] * Total testosterone (12/23/2024 10:51 AM HEAD BONE GRINDER) Testosterone 364 193 - 740 ng/dL Blood 12/23/2024 10:5 1 AM HEAD BONE GRINDER 12/23/2024 4:13 PM HEAD BONE GRINDER Francisco Javier Jordan MD LAB BLOOD ORDERABLES Final Result Performing Organization Address [facility] Phone Number KRISTINA [address] [place] [address] * (ABNORMAL) Lipid panel (12/23/2024 10:51 AM HEAD BONE GRINDER) Cholesterol 235(H) 30 - 199 mg/dL Comment: [...] on 2018. Triglycerides 179(H) <=149 mg/dL KRISTINA Comment: Interpretive Data Ages < or = [...] on 2024. Non-HDL Cholesterol 193 mg/dL K[facility]STINA PRASDA Comment: Interpretive Data Ages < or = [...] last revised on 2018. Chol/HDL ratio 6 [facility] Blood 12/23/2024 10:5 1 AM HEAD BONE GRINDER 12/23/2024 4:13 PM HEAD BONE GRINDER us Francisco Javier Jordan MD LAB [place] [address] [address] Department [place] [address] * Comprehensive metabolic panel (12/23/2024 10:51 AM HEAD BONE GRINDER) Sodium 145 135 - 145 mmol/L Potassium, [...] classification and Diagnosis of Diabetes Diabetes Care 202; 46: S19-S40. Current interpretive data was last [...] [facility] Blood 12/23/2024 10:5 1 AM HEAD BONE GRINDER 12/23/2024 4:13 PM HEAD BONE GRINDER us Francisco Javier Jordan MD LAB BLOOD ORDERABLES Final Result KRISTINA [address] [facility] Department [place] [address] * Urinalysis reflex to microscopic and culture Urine (12/11/2024 1:13 PM HEAD BONE GRINDER) Color, ur Yellow Yellow Clarity, ur Clear [...] tendency for uric acid stone formation. Source: [facility] [employer] Current Interpretive Data was last revised on 2017 Protein, ur ql Trace Negative [facility] ([place]) Glucose, ur ql Negative Negative [facility] ([place]) Ketones, ur Negative Negative [facility] ([place]) Bilirubin, ur Negative Negative [facility] ([place]) Blood, ur Negative Negative [facility] ([place]) Urobilinogen, ur <2.0 <2.0 mg/dL [facility] ([place]) Nitrite, ur Negative Negative [facility] ([place]) Leukocyte esterase, ur Negative Negative [facility] ([place]) UA reflex comment Reflex conditions for microscopic UA and culture not met. [facility] ([place]) Urine 12/11/2024 1:13 PM HEAD BONE GRINDER 12/11/2024 1:17 PM HEAD BONE GRINDER us Anton Levy MD LAB MICROBIOLOGY - GENERAL OR DERABLES Final Result [facility] ([place]) 1 [facility] Department [place] [address] * Drugs of Abuse Screen, Urine without Confirmation (12/11/2024 1:13 PM HEAD BONE GRINDER) [facility] Amphetamine, ur Not Detected CutOff 500ng/mL Comment: [...] 2023. Methadone, ur Not Detected CutOff 300ng/mL [facility] ([place]) Comment: Interpretive Data - Methadone: Samples containing greater than 300 ng/mL d,l-methadone or other cross-reacting compounds are reported as positive. False positive and false negative results are possible. Confirmatory testing required for definitive results. Current Interpretive Data was last reviewed 2023. Opiates, ur Not Detected CutOff 300ng/mL [facility] ([place]) Comment: Interpretive Data - Opiates: Samples containing greater than 300 ng/mL morphine or other cross-reacting compounds are reported as positive. False positive and false negative results are possible. Confirmatory testing required for definitive results. Current Interpretive Data was last reviewed 2023. Oxycodone, ur Not Detected CutOff 100ng/mL [facility] ([place]) Comment: Interpretive Data - Oxycodone: Samples containing greater than 100 ng/mL oxycodone or other cross-reacting compounds are reported as positive. False positive and false negative results are possible. Confirmatory testing required for definitive results. Current Interpretive Data was last reviewed 2023. Phencyclidine, ur Not Detected CutOff 25 ng/mL [facility] ([place]) Comment: Interpretive Data - Phencyclidine: Samples containing greater than 25 ng/mL phencyclidine or other cross-reacting compounds are reported as positive. False positive and false negative results are possible. Confirmatory testing required for definitive results. Current Interpretive Data was last reviewed 2023. Urine Creatinine 206 mg/dL [facility] ([place]) Comment: Interpretive Data Urine Creatinine: < 10 mg/dL is extremely dilute = or > 10 but < 20 mg/dL is dilute = or > 20 mg/dL is normal Current Interpretive Data was last revised on 2018. Urine 12/11/2024 1:13 PM HEAD BONE GRINDER 12/11/2024 1:17 PM HEAD BONE GRINDER Narrative K[facility]STINA GONZALEZ ([place]) - 12/11/2024 1:53 PM HEAD BONE GRINDER Drug of Abuse screening is performed by immunoassay for medical purposes only. This is not to be used for Pain Management purposes. Anton Levy MD LAB URINE ORDERABLES Final Re sult Performing Organization Address City/[facility]/ZIP Co de Phone Number KRISTINA LiangWILLARD) [address] [place] [address] [place] [address] * (ABNORMAL) Ethanol (12/11/2024 12:13 PM HEAD BONE GRINDER) Ethanol 98(H) <=10 mg/dL Comment: Interpretive Data Legal limit of intoxication > or = 80 mg/dL Levels > or = 400 mg/dL are potentially TOXIC. Current interpretive data was last revised on 2018. Blood 12/11/2024 12:1 3 PM HEAD BONE GRINDER 12/11/2024 12:15 PM HEAD BONE GRINDER Zhang Edwards MD LAB BLOOD ORDERABLES Final R esult Performing Organization Address [facility] Co de Phone Number KRISTINA GONZALEZ ([place]) [address] [place] [address] [place] [address] * COVID-19 Coronavirus RNA Nasopharyngeal (12/11/2024 4:22 AM HEAD BONE GRINDER) [facility] COVID-19 RNA Negative Negative Nasopharyngeal 12/11/2024 4: 22 AM HEAD BONE GRINDER 12/11/2024 4:26 AM HEAD BONE GRINDER Narrative [facility] ([place]) - 12/11/2024 5:03 AM HEAD BONE GRINDER Is the patient experiencing any symptoms consistent with COVID (eg. Fever, cough, shortness of breath)?->No What is the reason for testing?->Screening prior to Behavioral health admission Interpretive data: Testing performed by [facility]. This test is performed using the [employer] Xpert Xpress CoV-2 plus assay. This is a real-time RT-PCR test intended for the qualitative detection of nucleic acid from the SARS-CoV-2. This assay has been cleared by the [place] Food and Drug administration. The performance characteristics have been verified by [facility]. Results must be considered in the clinical context, and a negative result does not rule out infection. Interpretive data last revised 2024. Interpretive data: Testing performed by [facility]. This test is performed using the [employer] Xpert Xpress CoV-2 plus assay. This is a real-time RT-PCR test intended for the qualitative detection of nucleic acid from the SARS-CoV-2. This assay has been cleared by the [place] Food and Drug administration. The performance characteristics have been verified by [facility]. Results must be considered in the clinical context, and a negative result does not rule out infection. Interpretive data last revised 2024. us Anton Levy MD LAB MICROBIOLOGY - GENERAL OR DERABLES Final Result KRISTINA GONZALEZ ([facility] 1 [facility] Department [place] [address] * eGFR (12/11/2024 4:22 AM HEAD BONE GRINDER) eGFR >90 >=60 mL/min/1. 73 m2 Comment: [...] last reviewed 2021. Blood 12/11/2024 4:22 AM HEAD BONE GRINDER 12/11/2024 4:26 AM HEAD BONE GRINDER us Anton eLvy MD LAB BLOOD ORDERABLES Final Re sult [facility] ([place]) 1 [facility] Department [place] [address] * Differential, auto (12/11/2024 4:22 AM HEAD BONE GRINDER) Neutrophil abs 4.9 1.5 - 6.5 K/cumm Imm gran abs 0.1 0.0 - 0.1 K/cumm [facility] ([place]) Lymphocyte abs 2.3 0.8 - 3.3 K/cumm [facility] ([place]) Monocyte abs 0.4 0.2 - 0.8 K/cumm [facility] ([place]) Eosinophil abs 0.1 0.0 - 0.5 K/cumm [...] Imm gran pct 0.6 % [facility] ([place]) Comment: Interpretive Data Percent cell count reference [...] revised on 2018. Blood 12/11/2024 4:22 AM HEAD BONE GRINDER 12/11/2024 4:26 AM HEAD BONE GRINDER us Anton Levy MD LAB BLOOD ORDERABLES Final Re sult Performing Organization Address City/[facility]/ZIP Co de Phone Number KRISTINA GONZALEZ ([place]) [address] [facility] [place] [address] * (ABNORMAL) Thyroid Function Kern (12/11/2024 4:22 AM HEAD BONE GRINDER) TSH 6.07(H) 0.30 - 4.20 mcIUnit/mL Blood 12/11/2024 4:22 AM HEAD BONE GRINDER 12/11/2024 4:26 AM HEAD BONE GRINDER us Anton Levy MD LAB BLOOD ORDERABLES Final Re sult Performing Organization Address City/[facility] Co de Phone Number KRISTINA GONZALEZ ([place]) [address] [facility] [place] [address] * (ABNORMAL) CBC with auto differential (12/11/2024 4:22 AM HEAD BONE GRINDER) WBC 7.8 3.8 - 9.9 K/cumm Hgb [...] RDW CV 15.0(H) 11.1 - 14.9 % [facility] ([place]) RDW SD 49.6(H) 35.7 - 48.1 fL [facility] ([place]) NRBC abs 0.00 0.00 - 0.01 K/cumm [facility] ([place]) Blood Venous blood specimen / Unknown 12/11/2024 4:22 AM HEAD BONE GRINDER 12/11/2024 4:26 AM HEAD BONE GRINDER Anton Levy MD LAB BLOOD ORDERABLES Final Re sult KRISTINA GONZALEZ ([place]) [address] [facility] [place] [address] * T4, free (12/11/2024 4:22 AM HEAD BONE GRINDER) Free T4 1.21 0.90 - 1.70 ng/dL Blood 12/11/2024 4:22 AM HEAD BONE GRINDER 12/11/2024 4:26 AM HEAD BONE GRINDER Narrative KRISTINA GONZALEZ ([place]) - 12/11/2024 5:33 AM HEAD BONE GRINDER This test was reflexed from a TSH result. Anton Levy MD LAB BLOOD ORDERABLES Final Re sult Performing Organization Address [facility] Co de Phone Number KRISTINA GONZALEZ ([place]) 1 [facility] [place] [address] * Magnesium (12/11/2024 4:22 AM HEAD BONE GRINDER) Magnesium 1.9 1.4 - 2.5 mg/dL Blood 12/11/2024 4:22 AM HEAD BONE GRINDER 12/11/2024 5:26 AM HEAD BONE GRINDER Anton Levy MD LAB BLOOD ORDERABLES Final Re sult Performing Organization Address City/[facility]/ZIP Co de Phone Number KRISITNA GONZALEZ ([place]) 1 [facility] [place] [address] * (ABNORMAL) Ethanol (12/11/2024 4:22 AM HEAD BONE GRINDER) Ethanol 249(H) <=10 mg/dL Comment: Interpretive Data Legal limit of intoxication > or = 80 mg/dL Levels > or = 400 mg/dL are potentially TOXIC. Current interpretive data was last revised on 2018. Blood 12/11/2024 4:22 AM HEAD BONE GRINDER 12/11/2024 4:26 AM HEAD BONE GRINDER us Anton Levy MD LAB BLOOD ORDERABLES Final Re sult Performing Organization Address [facility] Co de Phone Number [facility] ([place]) 1 [facility] [employer] [place], [place] [id number] * Acetaminophen level (12/11/2024 4:22 AM HEAD BONE GRINDER) Acetaminophen <5 <=5 mcg/mL Comment: Markedly elevated [...] after ingestion Consult toxicology or poison control ([phone]) for unknown ingestion time. Current interpretive data was last revised 2023. Blood 12/11/2024 4:22 AM HEAD BONE GRINDER 12/11/2024 4:26 AM HEAD BONE GRINDER us Anton Levy MD LAB BLOOD ORDERABLES Final Re sult Performing Organization Address City/[facility] Co de Phone Number [facility] ([place]) 1 [facility] [place] [address] * Salicylate level (12/11/2024 4:22 AM HEAD BONE GRINDER) Salicylate <5.0 <=5.0 mg/dL Comment: Interpretive Data Toxic: 30 mg/dL or greater. Current interpretive data was last revised 2023. Blood 12/11/2024 4:22 AM HEAD BONE GRINDER 12/11/2024 4:26 AM HEAD BONE GRINDER us Anton Levy MD LAB BLOOD ORDERABLES Final Re sult [facility] ([place]) 1 [facility] Department [place] [address] * (ABNORMAL) Comprehensive metabolic panel (12/11/2024 4:22 AM HEAD BONE GRINDER) Sodium 139 135 - 145 mmol/L Potassium, [...] classification and Diagnosis of Diabetes Diabetes Care 202; 46: S19-S40. Current interpretive data was last revised 2022. Calcium 8.9 8.5 - 10.3 mg/dL [facility] Bilirubin, total <0.2 0.1 - 1.2 mg/dL [facility] Protein, pl 7.2 6.5 - 8.5 g/dL [facility] Albumin 4.7 3.5 - 5.0 g/dL [facility]) Alk phos 66 40 - 130 Units/L [facility] ALT 14 7 - 55 Units/L [facility] AST 15 10 - 50 Units/L [facility]) Blood 12/11/2024 4:22 AM HEAD BONE GRINDER 12/11/2024 4:26 AM HEAD BONE GRINDER Anton Levy MD LAB BLOOD ORDERABLES Final Re sult [facility] ([place]) [address] [facility] [place] [employer] [place] [address] * POCT glucose (12/11/2024 4:20 AM HEAD BONE GRINDER) Glucose, POC 141 70 - 199 mg/dL Blood 12/11/2024 4:20 AM HEAD BONE GRINDER 12/11/2024 4:20 AM HEAD BONE GRINDER Anton Levy MD LAB POCT ORDERABLES - DEVICE Final Result Performing Organization Address [facility] Co de Phone Number K[facility]STINA [facility] ([place]) [address] [facility] [place] [address] * PSA screen (11/18/2023 1:48 PM HEAD BONE GRINDER) PSA-Total 1.12 <=3.90 ng/mL [facility] Comment: Interpretive Data AGE SEX REFERENCE INTERVAL [...] last revised 22. Blood 11/18/2023 1:48 PM HEAD BONE GRINDER 11/18/2023 7:30 PM HEAD BONE GRINDER Francisco Javier Jordan MD LAB [place]LOOD [place] [address] [address] [facility] [place] [address] * Serum Hepatitis panel (07/28/2014 12:30 PM [...] Braun MD LAB BLOOD ORDERABLES Final Result Performing Organization Address City/State/[facility] Co de Phone Number HISTORICAL RESULTS from Last 3 Months or Most Recently Relevant to Health Maintenance Insurance [facility] ACCESS Advance Directives For more information, please contact: [phone] * Full Code (Latest Code Status on File) Date Activated Date Inactivated Comments 11/02/2023 8:35 PM 11/09/2023 9:13 PM Care Teams Conditioning Coach Relationship Specialty Start Date End Date Francisco Javier Jordan MD PCP - General 01/24/17 Francisco Javier Jordan MD [address] [facility] [address] [place] [address] PCP - [place] Attributed PCP 08/27/19 [place] [address] [facility] [address] [place] [address] Consulting Physician Psychiatry 12/02/18
--- OUTSIDE RECORDS SUMMARY | 2025-02-16 13:16 | XMS_ITS | Encounter Summary ---
Author Organization [facility] Healthcare Address [address] [place] [address] Care Team Providers Care Printed Forms Proofreader Name Role Phone Francisco Javier Jordan MD Primary Care Provider Maxi Arizmendi MD Unavailable Francisco Javier Jordan MD Unavailable [phone] Encounter Details Date Type Department Care Team (Late st Contact Info) Description 01/02/2025 Results Follow-Up [facility] Medical Group Primary Care at [address] [address] Francisco Javier Jordan MD [address] [place] [address] [address] [place] [address] Social History Tobacco Use Types Packs/Day Years Used Date Smoking Tobacco: Never Smokeless Tobacco: Never Alcohol Use Standard Drinks/Week Comments Yes 0 (1 standard drink = 0.6 oz pure alcohol) pt drinks bottle of whiskey daily [facility] Utilities Answer Date Recorded In the past 12 months has [employer], gas, oil, or water [employer] threatened to shut off services in your [...] 11/03/2023 How often do you attend chur or synagogue services? 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 Not on file Not on file Not on file referree Not on file Not on file Not on file documented as of this encounter Ordered Prescriptions Prescription Sig Dispense Quantity Refills Last Filled Start Date End Date levothyroxine (SYNTHROID) 50 mcg tablet Take 1 tablet (50 mcg total) 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
== END 2025-02-16 12:09 | disposition short-term general hospital (02) ==
PROVIDERS: Emergency Provider Nurse Practitioner Family; PCP Family Medicine
DX: R06.02 Shortness of breath (principal); I10 Essential (primary) hypertension; E78.00 Pure hypercholesterolemia, unspecified; E03.9 Hypothyroidism, unspecified; F41.9 Anxiety disorder, unspecified; F32.A Depression, unspecified
CPT/HCPCS: 71046; 93005; 99213; G0463